=== PATIENT | female | born 1940 | race Caucasian/White ===

== ENCOUNTER 2019-06-30 10:32 | Inpatient (IN) ==
--- NOTE | 2019-06-30 10:38 | Emergency Department Note ---
Disposition Clinical Impression: Displaced fracture of right femoral neck Fall Qualifiers: Encounter type: initial encounter Qualified Code(s): W19.XXXA - Unspecified f all, initial encounter Disposition: Admitted As Inpatient Time of Disposition: 16:50 General Adult HPI - General Chief complaint: ED Fall Stated complaint: fall Time Seen by Provider: 06/30/19 10:34 - Related Data Home Medications Medication Instructions Recorded Confirmed ALPRAZolam [Xanax 0.5 MG Tablet] 0.5 mg PO BID PRN 07/22/16 12/10/18 Previous Rx's Medication Instructions Recorded Ascorbic Acid [C-500] 500 mg PO DAILY #30 tablet 12/12/18 Cyanocobalamin (B-12) [Vitamin B12] 1,000 mcg PO DAILY #30 tablet 12/12/18 Ferrous Sulfate 325 mg PO DAILY #30 tablet 12/12/18 Allergies Allergy/AdvReac Type Severity Reaction Status Date / Time alendronate sodium Allergy Hives Verified 05/10/17 11:39 [From Fosamax] colesevelam Allergy Hives Verified 05/10/17 11:39 niacin Allergy Hives Verified 05/10/17 11:39 Penicillins Allergy Swelling Verified 05/10/17 11:39 of Lip/Tongue/Throat pravastatin [From Pravachol] Allergy Cough Verified 05/10/17 11:39 Wdfshea-Dwx-Lgz Reductase Allergy Hives Verified 05/10/17 11:39 Inhibitor [Statins] Sulfa (Sulfonamide Allergy Hives Verified 05/10/17 11:39 Antibiotics) Past Medical History - Past Medical History Medical history: Reports: hyperlipidemia, hypertension, other Surgical history: Reports: breast surgery (Lumpectomy), hysterectomy (Partial), other (Oophorectomy) Psychiatric history: Reports: anxiety - Social History Smoking Status: Never smoker Smokeless Tobacco Status: No Alcohol use: Reports: none Drug use: Reports: none Course Vital Signs Temperature 97.8 F 06/30/19 10:33 Pulse Rate 53 06/30/19 10:33 Respiratory Rate 24 06/30/19 10:33 Blood Pressure 173/70 06/30/19 10:33 O2 Sat by Pulse Oximetry 97 06/30/19 10:33 Temperature 97.7 F 06/30/19 13:38 Pulse Rate 72 06/30/19 13:38 Respiratory Rate 16 06/30/19 13:38 Blood Pressure 143/69 06/30/19 13:38 O2 Sat by Pulse Oximetry 97 06/30/19 12:31 Oxygen Delivery Oxygen Delivery Nasal Cannula Medical Decision Making - Lab Data Result diagrams: 06/30/19 10:52 06/30/19 10:52 Lab Results 06/30/19 06/30/19 06/30/19 Range/Units 10:52 10:52 10:52 WBC 6.8 (4.3-11.1) K/mcL RBC 4.17 (3.82-4.97) M/mcL Hgb 12.9 (11.5-15.4) g/dL Hct 38.3 (35.3-44.9) % MCV 91.8 (83.0-100.0) fL MCH 30.9 (28.0-33.3) pg MCHC 33.7 (31.6-35.5) g/dL RDW 12.5 (11.5-14.5) % Plt Count 296 (140-400) K/mcL MPV 9.3 L (9.4-12.4) fL Immature Gran % 0.6 (0-4) % Seg Neutrophils % 71.3 % Lymphocytes % 19.3 % Monocytes % 6.0 % Eosinophils % 2.1 % Basophils % 0.7 % Neutrophils # 4.8 (1.6-8.9) K/mcL Lymphocytes # 1.3 (0.6-4.6) K/mcL Monocytes # 0.4 (0.0-1.3) K/mcL Eosinophils # 0.1 (0.0-0.6) K/mcL Basophils # 0.1 (0.0-0.2) K/mcL PT 11.6 (9.4-12.1) Seconds INR 1.0 Sodium 140 (136-145) mEq/L Potassium 3.4 L (3.5-5.1) mEq/L Chloride 106 (98-107) mEq/L Carbon Dioxide 25 (23-29) mEq/L BUN 15 (8-23) mg/dL Creatinine 0.70 (0.60-1.20) mg/dL Est GFR ( Amer) > 60 (> 60) Est GFR (Non-Af Amer) > 60 (> 60) BUN/Creatinine Ratio 21 (6-26) Glucose 120 H (70-105) mg/dL Calculated Osmolality 292 (280-300) Calcium 9.5 (8.6-10.3) mg/dL Blood Type Antibody Screen 06/30/19 Range/Units 10:52 WBC (4.3-11.1) K/mcL RBC (3.82-4.97) M/mcL Hgb (11.5-15.4) g/dL Hct (35.3-44.9) % MCV (83.0-100.0) fL MCH (28.0-33.3) pg MCHC (31.6-35.5) g/dL RDW (11.5-14.5) % Plt Count (140-400) K/mcL MPV (9.4-12.4) fL Immature Gran % (0-4) % Seg Neutrophils % % Lymphocytes % % Monocytes % % Eosinophils % % Basophils % % Neutrophils # (1.6-8.9) K/mcL Lymphocytes # (0.6-4.6) K/mcL Monocytes # (0.0-1.3) K/mcL Eosinophils # (0.0-0.6) K/mcL Basophils # (0.0-0.2) K/mcL PT (9.4-12.1) Seconds INR Sodium (136-145) mEq/L Potassium (3.5-5.1) mEq/L Chloride (98-107) mEq/L Carbon Dioxide (23-29) mEq/L BUN (8-23) mg/dL Creatinine (0.60-1.20) mg/dL Est GFR ( Amer) (> 60) Est GFR (Non-Af Amer) (> 60) BUN/Creatinine Ratio (6-26) Glucose (70-105) mg/dL Calculated Osmolality (280-300) Calcium (8.6-10.3) mg/dL Blood Type O POSITIVE Antibody Screen NEGATIVE Attestation Statement - Attestation Attestation: I reviewed the residents documentation and agree with the residents assessment and plan of care. I have personally had face to face time with the patient. (Brief History, Brief Exam, and MDM) I personally supervised and was present for the elias/critical portions of the following procedures completed by the resident: (add procedures performed here). [id number] time provided Patient presents by EMS. He sustained a mechanical fall. She complains of right hip pain. Shortening deformity identified on exam. I attest to supervising the resident physician's interpretation of the ECG
[2019-06-30] MEDS ORDERED: *HR* HYDROmorphone (PF) 1 MG/ML SYRINGE IVP ONE (10:43)
--- NOTE | 2019-06-30 10:44 | Emergency Department Note ---
Disposition Clinical Impression: Displaced fracture of right femoral neck Fall Qualifiers: Encounter type: initial encounter Qualified Code(s): W19.XXXA - Unspecified f all, initial encounter Disposition: Admitted As Inpatient Forms: ED Satisfaction Letter Time of Disposition: 11:49 Fall HPI - General Chief Complaint: ED Fall Stated Complaint: fall Time Seen by Provider: 06/30/19 10:34 Source: patient, EMS Mode of arrival: EMS Limitations: no limitations Nursing Notes Reviewed: Yes Vital Signs Reviewed: Yes - History of Present Illness HPI Narrative: 79F with PMHx of HTN and HLD presents to the ED after a mechanical fall without loss of consciousness. Patient was running away from a bee that was inside of her house when she twisted and fell, striking the right side of her body and the right side of her head. She said she saw stars but did not lose consciousness. She was only on the ground for a few minutes as her son was home as well and called EMS. She is afraid she may have broken her hip as her right hip is exquisitely tender. She denies head and neck pain, chest pain, abdominal pain a t this time. Her shoulder feels a little bit sore but is not tender to palpation. - Related Data Home Medications Medication Instructions Recorded Confirmed ALPRAZolam [Xanax 0.5 MG Tablet] 0.5 mg PO BID PRN 07/22/16 12/10/18 Previous Rx's Medication Instructions Recorded Ascorbic Acid [C-500] 500 mg PO DAILY #30 tablet 12/12/18 Cyanocobalamin (B-12) [Vitamin B12] 1,000 mcg PO DAILY #30 tablet 12/12/18 Ferrous Sulfate 325 mg PO DAILY #30 tablet 12/12/18 Allergies Allergy/AdvReac Type Severity Reaction Status Date / Time alendronate sodium Allergy Hives Verified 05/10/17 11:39 [From Fosamax] colesevelam Allergy Hives Verified 05/10/17 11:39 niacin Allergy Hives Verified 05/10/17 11:39 Penicillins Allergy Swelling Verified 05/10/17 11:39 of Lip/Tongue/Throat pravastatin [From Pravachol] Allergy Cough Verified 05/10/17 11:39 Gyfbfwz-Dwc-Uml Reductase Allergy Hives Verified 05/10/17 11:39 Inhibitor [Statins] Sulfa (Sulfonamide Allergy Hives Verified 05/10/17 11:39 Antibiotics) All systems ED: reviewed and negative except as stated. Review of Systems: As Per HPI Constitutional: Denies: fever, chills, weakness Eyes: Denies: vision change Cardiovascular: Denies: chest pain, palpitations, dyspnea on exertion Respiratory: Denies: cough, dyspnea, wheezes Gastrointestinal: Denies: abdominal pain, nausea, vomiting Musculoskeletal: Denies: back pain, neck pain Integumentary: Denies: rash Endocrine: Denies: fatigue Fall PMH - Past Medical History Medical history: Reports: hyperlipidemia, hypertension, other Surgical history: Reports: breast surgery (Lumpectomy), hysterectomy (Partial), other (Oophorectomy) Psychiatric history: Reports: anxiety - Social History Smoking Status: Never smoker Alcohol use: Reports: none Drug use: Reports: none Physical Exam - General Limitations: no limitations General appearance: alert, in no apparent distress - Head Head exam: normocephalic, other (bruising noted above right eyebrow without laceration) - Neck Neck exam: Present: normal inspection. Absent: tenderness, lymphadenopathy - Chest Chest inspection: Present: normal inspection. Absent: tenderness, rash - Respiratory Respiratory exam: Present: normal lung sounds bilaterally. Absent: wheezes - Cardiovascular Cardiovascular exam: Present: regular rate, normal rhythm - Abdominal Exam Abdominal exam: Present: soft, Non-Tender. Absent: distention, guarding, rebound, rigidity - Extremities Exam Extremities exam: Present: tenderness (right hip tender to palpation and log roll). Absent: pedal edema - Neurological Exam Neurological exam: Present: alert, oriented X3 - Psychiatric Psychiatric exam: Present: normal affect, normal mood - Skin Skin exam: Present: warm, dry, intact Course Vital Signs Temperature 97.8 F 06/30/19 10:33 Pulse Rate 53 06/30/19 10:33 Respiratory Rate 24 06/30/19 10:33 Blood Pressure 173/70 06/30/19 10:33 O2 Sat by Pulse Oximetry 97 06/30/19 10:33 Temperature 97.8 F 06/30/19 10:33 Pulse Rate 53 06/30/19 10:33 Respiratory Rate 24 06/30/19 10:33 Blood Pressure 173/70 06/30/19 10:33 O2 Sat by Pulse Oximetry 97 06/30/19 10:33 Oxygen Delivery Oxygen Delivery Room Air Fall - MDM Narrative Medical decision making narrative: Patient resents after a fall without loss of consciousness and is suspicious for a broken hip. We will obtain preop labs and EKG as well as imaging of her head , C-spine, chest x-ray and hip films. Pt will be given 0.5mg of dilaudid for pain management. 1129 - hip XR shows a supcapital right femoral neck fracture with superior displacement. All other labs and CXR do not demonstrate acute abnormalities. Awaiting imaging of the head and neck at this time. Ortho has been paged. Pt began vomiting after administration of Dilaudid therefore we will administer Zofran for nausea. 1140 - Spoke with Dr. Fay who states he will see the patient in consultation later today. CT imaging of the head and cervical spine do not demonstrate any acute fractures. Hospitalist has been paged for admission. 1148 - Pt has been accepted by Dr. Weems - Medical Records Medical records reviewed: Yes I reviewed the patient's medical records. - Lab Data Lab results reviewed: Yes I reviewed the patient's lab results. Result diagrams: 06/30/19 10:52 06/30/19 10:52 Lab Results 06/30/19 06/30/19 06/30/19 Range/Units 10:52 10:52 10:52 WBC 6.8 (4.3-11.1) K/mcL RBC 4.17 (3.82-4.97) M/mcL Hgb 12.9 (11.5-15.4) g/dL Hct 38.3 (35.3-44.9) % MCV 91.8 (83.0-100.0) fL MCH 30.9 (28.0-33.3) pg MCHC 33.7 (31.6-35.5) g/dL RDW 12.5 (11.5-14.5) % Plt Count 296 (140-400) K/mcL MPV 9.3 L (9.4-12.4) fL Immature Gran % 0.6 (0-4) % Seg Neutrophils % 71.3 % Lymphocytes % 19.3 % Monocytes % 6.0 % Eosinophils % 2.1 % Basophils % 0.7 % Neutrophils # 4.8 (1.6-8.9) K/mcL Lymphocytes # 1.3 (0.6-4.6) K/mcL Monocytes # 0.4 (0.0-1.3) K/mcL Eosinophils # 0.1 (0.0-0.6) K/mcL Basophils # 0.1 (0.0-0.2) K/mcL PT 11.6 (9.4-12.1) Seconds INR 1.0 Sodium 140 (136-145) mEq/L Potassium 3.4 L (3.5-5.1) mEq/L Chloride 106 (98-107) mEq/L Carbon Dioxide 25 (23-29) mEq/L BUN 15 (8-23) mg/dL Creatinine 0.70 (0.60-1.20) mg/dL Est GFR ( Amer) > 60 (> 60) Est GFR (Non-Af Amer) > 60 (> 60) BUN/Creatinine Ratio 21 (6-26) Glucose 120 H (70-105) mg/dL Calculated Osmolality 292 (280-300) Calcium 9.5 (8.6-10.3) mg/dL Blood Type Antibody Screen 06/30/19 Range/Units 10:52 WBC (4.3-11.1) K/mcL RBC (3.82-4.97) M/mcL Hgb (11.5-15.4) g/dL Hct (35.3-44.9) % MCV (83.0-100.0) fL MCH (28.0-33.3) pg MCHC (31.6-35.5) g/dL RDW (11.5-14.5) % Plt Count (140-400) K/mcL MPV (9.4-12.4) fL Immature Gran % (0-4) % Seg Neutrophils % % Lymphocytes % % Monocytes % % Eosinophils % % Basophils % % Neutrophils # (1.6-8.9) K/mcL Lymphocytes # (0.6-4.6) K/mcL Monocytes # (0.0-1.3) K/mcL Eosinophils # (0.0-0.6) K/mcL Basophils # (0.0-0.2) K/mcL PT (9.4-12.1) Seconds INR Sodium (136-145) mEq/L Potassium (3.5-5.1) mEq/L Chloride (98-107) mEq/L Carbon Dioxide (23-29) mEq/L BUN (8-23) mg/dL Creatinine (0.60-1.20) mg/dL Est GFR ( Amer) (> 60) Est GFR (Non-Af Amer) (> 60) BUN/Creatinine Ratio (6-26) Glucose (70-105) mg/dL Calculated Osmolality (280-300) Calcium (8.6-10.3) mg/dL Blood Type O POSITIVE Antibody Screen NEGATIVE - Radiology Data Radiology results reviewed: Yes I reviewed the patient's radiology results. - EKG Data EKG attestation: Yes I reviewed and interpreted this EKG. EKG results narrative: EKG obtained at 1050 on 06/30/2019 Heart rate 52 bpm, MO interval 169, QRS duration 77, QTC 450, QTC 419 Sinus rhythm without any ST segment elevations or depressions. No obvious T- wave abnormalities. No significant changes when compared to previous EKG dated 12/10/2018.
[2019-06-30 11:04] LABS: Basophils # 0.1 K/mcL (0.0-0.2); Basophils % 0.7 %; Eosinophils # 0.1 K/mcL (0.0-0.6); Eosinophils % 2.1 %; Hematocrit 38.3 % (35.3-44.9); Hemoglobin 12.9 g/dL (11.5-15.4); Immature Granulocytes % 0.6 % (0-4); Lymphocytes # 1.3 K/mcL (0.6-4.6); Lymphocytes % 19.3 %; Mean Corpuscular HGB Conc 33.7 g/dL (31.6-35.5); Mean Corpuscular Hemoglobin 30.9 pg (28.0-33.3); Mean Corpuscular Volume 91.8 fL (83.0-100.0); Mean Platelet Volume 9.3 fL (9.4-12.4); Monocytes # 0.4 K/mcL (0.0-1.3); Neutrophils # 4.8 K/mcL (1.6-8.9); Platelet Count 296 K/mcL (140-400); Red Blood Count 4.17 M/mcL (3.82-4.97); Red Cell Distribution Width 12.5 % (11.5-14.5); Segmented Neutrophils % 71.3 %; White Blood Count 6.8 K/mcL (4.3-11.1)
[2019-06-30 11:11] LABS: Prothrombin Time 11.6 Seconds (9.4-12.1)
[2019-06-30 11:22] LABS: BUN/Creatinine Ratio 21 (6-26); Blood Urea Nitrogen 15 mg/dL (8-23); Calcium 9.5 mg/dL (8.6-10.3); Carbon Dioxide 25 mEq/L (23-29); Chloride 106 mEq/L (98-107); Glucose 120 mg/dL (70-105); Osmolality,Calculated 292 (280-300); Potassium 3.4 mEq/L (3.5-5.1); Sodium 140 mEq/L (136-145); eGFR For African Americans > 60 (> 60); eGFR For Non-African Americans > 60 (> 60)
[2019-06-30] MEDS ORDERED: Ondansetron 4 MG/2 ML VIAL IVP ONE (11:28)
[2019-06-30] MEDS ORDERED: Tdap (Boostrix) Vaccine 0.5 ML SYRINGE IM ONE (11:43)
[2019-06-30] MEDS ORDERED: MOM Conc 10 ML UD.LIQ PO PRN (13:21)
[2019-06-30] MEDS ORDERED: Acetaminophen 325 MG TABLET PO PRN (13:21)
[2019-06-30] MEDS ORDERED: Mag Hydrox/Al Hydrox/Simeth 30 ML UDC PO PRN (13:21)
[2019-06-30] MEDS ORDERED: Ondansetron 4 MG/2 ML VIAL IVP PRN (13:21)
[2019-06-30] MEDS ORDERED: *HR* Promethazine 25 MG/ML VIAL IVP PRN (13:21)
[2019-06-30] MEDS ORDERED: Naloxone 0.4 MG/ML INJ IVP PRN (13:21)
[2019-06-30] MEDS ORDERED: Morphine Sulfate 2 MG/ML SYRINGE IVP PRN (13:26)
--- NOTE | 2019-06-30 13:29 | Internal Med History&Physical ---
Date of Encounter: 06/30/19 Time of Encounter: 13:29 Internal Medicine - H&P: HPI Admitted From: Home Plans for Post Hospital Care: Home History of present illness: Ms. Pemberton is an 79F with PMHx of HTN and HLD presents to the ED after a mechanical fall without loss of consciousness. Patient was running away from a bee that was inside of her house when she twisted and fell, striking the right side of her body and the right side of her head. She said she saw stars but did not lose consciousness. She was only on the ground for a few minutes as her son was home as well and called EMS. She is afraid she may have broken her hip as her right hip is exquisitely tender. She denies head and neck pain, chest pain, abdominal pain at this time. Her shoulder feels a little bit sore but is not tender to palpation. X-ray of right hip showed subcapital right femoral neck fracture with superior displacement. Orthopedics was consulted. Patient was admitted for further evaluation and management. She will be full code. Past Med Surg Social Fam HX - Past Medical History Medical history: hyperlipidemia, hypertension, other Additional medical history: DIVERTICULOSIS Psychiatric history: anxiety - Past Surgical History Surgical History: breast surgery (Lumpectomy), hysterectomy (Partial), other (Oophorectomy) Additional surgical history: benign breast tumor, OVARY REMOVED - Social History Smoking Status: Never smoker Smokeless Tobacco Status: No Alcohol use: none Drug use: none - Family History Mother Hx Family Respiratory Disorders: Yes Hx Family Cancer: Yes Father Hx Family Cardiac Disorders: Yes Internal Medicine - H&P: Meds ALPRAZolam [Xanax 0.5 MG Tablet] 0.5 mg PO BID PRN 07/22/16 [History] Ascorbic Acid [C-500] 500 mg PO DAILY #30 tablet 12/12/18 [Rx] Cyanocobalamin (B-12) [Vitamin B12] 1,000 mcg PO DAILY #30 tablet 12/12/18 [Rx] Ferrous Sulfate 325 mg PO DAILY #30 tablet 12/12/18 [Rx] Allergy/AdvReac Type Severity Reaction Status Date / Time alendronate sodium Allergy Hives Verified 05/10/17 11:39 [From Fosamax] colesevelam Allergy Hives Verified 05/10/17 11:39 niacin Allergy Hives Verified 05/10/17 11:39 Penicillins Allergy Swelling Verified 05/10/17 11:39 of Lip/Tongue/Throat pravastatin [From Pravachol] Allergy Cough Verified 05/10/17 11:39 Cblxovi-Ykb-Eir Reductase Allergy Hives Verified 05/10/17 11:39 Inhibitor [Statins] Sulfa (Sulfonamide Allergy Hives Verified 05/10/17 11:39 Antibiotics) All Systems PM: A 10-system review of systems was performed and is negative for pertinent findings except as documented above in the HPI. Review of systems: REVIEW OF SYSTEMS: CONSTITUTIONAL: No weight loss, fever, chills, weakness or fatigue. HEENT: Eyes: No visual loss, blurred vision, double vision or yellow sclerae. Ears, Nose, Throat: No hearing loss, sneezing, congestion, runny nose or sore throat. SKIN: No rash or itching. CARDIOVASCULAR: No chest pain, chest pressure or chest discomfort. No palpitations or edema. RESPIRATORY: No shortness of breath, cough or sputum. GASTROINTESTINAL: No anorexia, nausea, vomiting or diarrhea. No abdominal pain or blood. GENITOURINARY: No dysuria, urgency, or frequency. NEUROLOGICAL: No headache, dizziness, syncope, paralysis, ataxia, numbness or tingling in the extremities. No change in bowel or bladder control. MUSCULOSKELETAL: No muscle, back pain, joint pain or stiffness. HEMATOLOGIC: No anemia, bleeding or bruising. LYMPHATICS: No enlarged nodes. No history of splenectomy. PSYCHIATRIC: No history of depression or anxiety. ENDOCRINOLOGIC: No reports of sweating, cold or heat intolerance. No polyuria or polydipsia. - Constitutional Vitals: Temp Pulse Resp BP Pulse Ox 97.8 F 49 17 150/71 97 06/30/19 10:33 06/30/19 12:31 06/30/19 12:31 06/30/19 12:31 06/30/19 12:31 General appearance: Present: A&O X 3 Exam: PHYSICAL EXAMINATION: GENERAL APPEARANCE: The patient is alert, oriented and in no acute distress. HEENT: Head is normocephalic. The sinuses are nontender. Pupils are equal and reactive. The nares are patent. Oropharynx clear without lesions. NECK: Supple without lymphadenopathy. HEART: Regular rate and rhythm. LUNGS: No crackles or wheezes are heard. ABDOMEN: Soft, nontender, nondistended with good bowel sounds heard. Inguinal area is normal. EXTREMITIES: right leg is externally rotated and shorter than the left side. NEUROLOGICAL: Gross nonfocal. SKIN: Warm and dry without any rash. Internal Med - H&P Results - Labs CBC & Chem 7: 06/30/19 10:52 06/30/19 10:52 Labs: Short CBC 06/30/19 Range/Units 10:52 WBC 6.8 (4.3-11.1) K/mcL Hgb 12.9 (11.5-15.4) g/dL Hct 38.3 (35.3-44.9) % Plt Count 296 (140-400) K/mcL Neutrophils # 4.8 (1.6-8.9) K/mcL BMP 06/30/19 10:52 Sodium 140 Potassium 3.4 L Chloride 106 Carbon Dioxide 25 BUN 15 Creatinine 0.70 Glucose 120 H Calcium 9.5 - Impressions ITS Impressions Hip X-Ray 06/30/19 10:36 IMPRESSION: Subcapital right femoral neck fracture with superior displacement D/ / Bart Katz MD / Bart Katz MD Interpreting Provider: Bart Katz MD Cervical Spine CT 06/30/19 10:42 IMPRESSION: No acute abnormality of the cervical spine. D/ / Sree López MD / Sree López MD Interpreting Provider: Sree López MD Chest X-Ray 06/30/19 10:42 IMPRESSION: No acute process. D/ / Bart Katz MD / Bart Katz MD Interpreting Provider: Bart Katz MD Head CT 06/30/19 10:42 IMPRESSION: No acute intracranial abnormality. D/ / Bennie Bruno MD / Bennie Bruno MD Interpreting Provider: Bennie Bruno MD - Assessment and Plan (1) Fall Current Visit: Yes Status: Acute Assessment and plan: Seems a farm mechanic fall. No LOC. No syncope, palpitation, or lightheadedness. Qualifiers: Encounter type: initial encounter Qualified Code(s): W19.XXXA - Unspecified fall, initial encounter (2) Displaced fracture of right femoral neck Current Visit: Yes Status: Acute Assessment and plan: X-ray of right hip showed subcapsular femoral neck fracture. Orthopedics consulted, appreciate help. No history of osteoporosis, serum calcium level normal. Will check vitamin D level. Pain control, DVT prophylaxis. (3) Hypertension Current Visit: No Status: Chronic Assessment and plan: Not on BP meds at home, BP high currently likely due to acute stress. Will monitor. Qualifiers: Hypertension type: essential hypertension Qualified Code(s): I10 - Essential (primary) hypertension (4) Hyperlipidemia Current Visit: No Status: Chronic Assessment and plan: Not on lipid lower agent at home. will repeat lipid panel. Qualifiers: Hyperlipidemia type: unspecified Qualified Code(s): E78.5 - Hyperlipidemia, unspecified (5) DVT prophylaxis Current Visit: Yes Status: Acute Assessment and plan: Heparin sq. - Time Spent With Patient Total time spent is greater than 50% in coordination of care (as documented) at patient's floor/unit and/or counseling patient: Greater than 35 minutes
[2019-06-30] MEDS: *HR* Heparin 5,000 UNIT/ML VIAL SQ SCH ×2 (14:25→22:13)
[2019-06-30] MEDS: traMADol 50 MG TABLET PO PRN ×2 (15:26→22:13)
--- NOTE | 2019-06-30 20:43 | Orthopedic Consult Note ---
Date of Encounter: 06/30/19 Time of Encounter: 20:36 History of Present Illness Chief complaint: Right hip pain HPI: Ms. Pemberton is a 79 year old female who sustained a mechanical fall in her home when she tripped as she was trying to move Bactrim abnormal be in her home. She fell and injured her right hip. She had immediate pain and was able to ambulate. She was brought emergently x-rays taken revealed evidence of a right hip fracture. She is admitted now for definitive orthopedic management. Patient denies any other injuries. Patient denies dizziness vertigo syncope etc. Patient has a history of spinal stenosis with some progressive numbness in the foot. Denies any recurrent back pain. I reviewed the patient's completed history and physical examination as well as completed medical record. Pertinent orthopedic examination is a very pleasant 79-year-old woman in mild distress while lying in the hospital bed. Right lower extremity is shortened approximately 2-1/2-3 cm. Minimal rotational deformity. Distal neurosensory exam reveals some diminished sensation distally. X-rays reveals a displaced right femoral neck fracture with marked shortening of the right lower extremity. There is what appears to be a calcified fibroid in the uterus with a pessary also identified on x-ray. Impression: Displaced right femoral neck fracture Recommendation: I feel the optimal treatment would be to proceed with a cemented hemiarthroplasty of the hip. I discussed the treatment options including conservative measures with nonoperative management or surgical treatment. I recommend the cemented hemiarthroplasty as this would allow immediate full weightbearing ambulation and would eliminate any need for fracture healing with the risks of avascular necrosis should an attempt at reduction and percutaneous pinning be entertained. We discussed the surgical procedure as well as the possible risks including but not limited to bleeding, infection, blood clots, stiffness, additional nerve injury, rotational or leg length deformity or even hip dislocation. The patient and family understand and agree and feel that this is the best treatment option. Patient has signed informed consent for the surgical procedure. Have tentatively scheduled her for surgery tomorrow when operating time is available. Thank you very much for allowing me to seen care for Mrs. Pemberton. Sincerely, Noel Fay,DO Past Med Surg Social Fam HX - Past Medical History Medical history: hyperlipidemia, hypertension, other Additional medical history: DIVERTICULOSIS Psychiatric history: anxiety - Past Surgical History Surgical History: breast surgery (Lumpectomy), hysterectomy (Partial), other (Oophorectomy) Additional surgical history: benign breast tumor, OVARY REMOVED - Social History Smoking Status: Never smoker Smokeless Tobacco Status: No Alcohol use: none Drug use: none - Family History Mother Hx Family Respiratory Disorders: Yes Hx Family Cancer: Yes Father Hx Family Cardiac Disorders: Yes Medications and Allergies ALPRAZolam [Xanax 0.5 MG Tablet] 0.5 mg PO BID PRN 07/22/16 [History] Ascorbic Acid [C-500] 500 mg PO DAILY #30 tablet 12/12/18 [Rx] Cyanocobalamin (B-12) [Vitamin B12] 1,000 mcg PO DAILY #30 tablet 12/12/18 [Rx] Ferrous Sulfate 325 mg PO DAILY #30 tablet 12/12/18 [Rx] Allergy/AdvReac Type Severity Reaction Status Date / Time alendronate sodium Allergy Hives Verified 05/10/17 11:39 [From Fosamax] colesevelam Allergy Hives Verified 05/10/17 11:39 niacin Allergy Hives Verified 05/10/17 11:39 Penicillins Allergy Swelling Verified 05/10/17 11:39 of Lip/Tongue/Throat pravastatin [From Pravachol] Allergy Cough Verified 05/10/17 11:39 Gdzcjio-Wkc-Pru Reductase Allergy Hives Verified 05/10/17 11:39 Inhibitor [Statins] Sulfa (Sulfonamide Allergy Hives Verified 05/10/17 11:39 Antibiotics) All Systems Reviewed: The remainder of the systems were reviewed and are negative Physical Exam - Constitutional Vitals: Temp Pulse Resp BP Pulse Ox 98.5 F 72 17 104/53 99 06/30/19 19:39 06/30/19 19:39 06/30/19 19:39 06/30/19 19:39 06/30/19 19:39 Results - Labs Result Diagrams: 06/30/19 10:52 06/30/19 10:52 Labs: Abnormal lab results MPV 9.3 fL (9.4-12.4) L 06/30/19 10:52 Potassium 3.4 mEq/L (3.5-5.1) L 06/30/19 10:52 Glucose 120 mg/dL (70-105) H 06/30/19 10:52 H & H 08/26/19 Range/Units 10:52 Hgb 12.9 (11.5-15.4) g/dL Hct 38.3 (35.3-44.9) % All other labs normal. - Diagnostic results Hip x-ray: image reviewed Consult Discharge Plan - Plan Referrals: Olya Lujan DO [Primary Care Provider] -
--- NOTE | 2019-07-01 00:29 | Electrocardiograph Report ---
[place] Test Date: 2019-06-30 Pat Name: Margaret Pemberton Department: EXAM1 Room: [facility] Gender: F Change Over: : 1940 Requested By: Chloe Shah Order Number: [id number] Reading MD: Olya Lujan Measurements Intervals [place] Rate: 52 P: 74 WA: 169 QRS: 46 QRSD: 77 T: 54 QT: 450 QTc: 419 Interpretive Statements Sinus rhythm Baseline wander in lead(s) V3 Electronically Signed On 07-01-2019 0:27:40 EDT by Olya Lujan
[2019-07-01 05:42] LABS: Hematocrit 32.7 % (35.3-44.9); Mean Corpuscular Hemoglobin 30.9 pg (28.0-33.3); Mean Corpuscular Volume 93.7 fL (83.0-100.0); Mean Platelet Volume 9.3 fL (9.4-12.4); Platelet Count 254 K/mcL (140-400); Red Blood Count 3.49 M/mcL (3.82-4.97); Red Cell Distribution Width 12.8 % (11.5-14.5)
[2019-07-01 05:43] LABS: Hemoglobin 10.8 g/dL (11.5-15.4); White Blood Count 11.6 K/mcL (4.3-11.1)
[2019-07-01] MEDS: *HR* Heparin 5,000 UNIT/ML VIAL SQ SCH ×2 (05:44→15:19)
[2019-07-01 06:04] LABS: Chol/HDL Ratio 3.3 (0-4.9)
[2019-07-01 06:06] LABS: Alanine Aminotransferase 14 Units/L (7-52); Albumin 3.6 g/dL (3.5-5.7); Albumin/Globulin Ratio 1.6 (1.1-2.2); Alkaline Phosphatase 47 Units/L (34-104); Aspartate Amino Transferase 12 Units/L (13-39); BUN/Creatinine Ratio 26 (6-26); Bilirubin,Total 0.5 mg/dL (0.3-1.0); Blood Urea Nitrogen 23 mg/dL (8-23); Calcium 9.1 mg/dL (8.6-10.3); Carbon Dioxide 26 mEq/L (23-29); Chloride 102 mEq/L (98-107); Globulin 2.2 g/dL (2.4-3.5); Glucose 130 mg/dL (70-105); Osmolality,Calculated 291 (280-300); Phosphorous 3.6 mg/dL (2.7-4.5); Potassium 4.4 mEq/L (3.5-5.1); Sodium 138 mEq/L (136-145); Total Protein 5.8 g/dL (6.4-8.9); eGFR For African Americans > 60 (> 60); eGFR For Non-African Americans > 60 (> 60)
[2019-07-01] MEDS: traMADol 50 MG TABLET PO PRN (10:55)
[2019-07-01] MEDS ORDERED: Clindamycin 900 MG/50 ML 900 MG/50 ML IV.SOLN IVPB ONE (12:00)
--- NOTE | 2019-07-01 14:01 | Anesthesia Evaluation PreOp ---
Date of Encounter: 07/01/19 Time of Encounter: 13:58 - Past History Planned Operation: RIGHT HIP HEMIARTHROPLASTY Cardiac History: HTN, Hyperlipidemia Pulmonary History: Denies Any Significant HX [employer] History: Other (SPINAL STENOSIS, PERIPHERAL NEUROPATHY) Other Medical History: Denies Any Significant HX, Other (ANEMIA) Anesthesia History: No Prior Anesthetic Complications, Past Anesthesia Alcohol Use: none Drug use: none Medications and Allergies ALPRAZolam [Xanax 0.5 MG Tablet] 0.5 mg PO HS 07/22/16 [History] Ascorbic Acid [C-500] 500 mg PO DAILY #30 tablet 12/12/18 [Rx] Cyanocobalamin (B-12) [Vitamin B12] 1,000 mcg PO DAILY #30 tablet 12/12/18 [Rx] Amlodipine Besylate 2.5 mg PO DAILY 07/01/19 [History] Aspirin [Adult Aspirin] 81 mg PO DAILY 07/01/19 [History] Lactase [Lactaid] 3,000 unit PO PRN PRN 07/01/19 [History] Lisinopril-HCTZ 10-12.5 [Prinzide 10-12.5] 1 tab PO DAILY 07/01/19 [History] Allergy/AdvReac Type Severity Reaction Status Date / Time alendronate sodium Allergy Hives Verified 05/10/17 11:39 [From Fosamax] colesevelam Allergy Hives Verified 05/10/17 11:39 niacin Allergy Hives Verified 05/10/17 11:39 Penicillins Allergy Swelling Verified 05/10/17 11:39 of Lip/Tongue/Throat pravastatin [From Pravachol] Allergy Cough Verified 05/10/17 11:39 [id number] Reductase Allergy Hives Verified 05/10/17 11:39 Inhibitor [Statins] Sulfa (Sulfonamide Allergy Hives Verified 05/10/17 11:39 Antibiotics) - Meds/Allergy Pre-op Review Medications Reviewed: Yes Allergies Reviewed: Yes Beta Blockers on Current Med List: No Anesthesia Results - Labs 07/01/19 05:26 07/01/19 05:26 Anesthesia Exam Vital Signs/O2 Sat/Glucose, Most Recent Temp Pulse Resp BP Pulse Ox 99.2 F 60 16 103/56 93 07/01/19 06:57 07/01/19 06:57 07/01/19 06:57 07/01/19 06:57 07/01/19 03:27 Weight: 60 KG - BMI 23 NPO (# of Hours): 8 - HEENT Mallampati: I Teeth: Normal Denture Type: Upper: Partial - Cardiac Rhythm: Regular - Pulmonary Breath Sounds: bilateral Clear Anesthesia Assess/Plan ASA Score: 2 Anesthetic Plan: Spinal Monitoring Plan: Standard Monitors Recovery Plan: PACU
[2019-07-01] MEDS ORDERED: LACTASE 3000 UNIT PO PRN (15:39)
--- NOTE | 2019-07-01 16:28 | Internal Med Progress Note ---
Hospitalist Progress Note - Encounter Date of Encounter: 07/01/19 Time of Encounter: 07:37 - Subjective Interval History: No acute events overnight. Patient denies chest pain shortness of breath and palpitations. She admits some moderate right hip pain. - Exam Vitals: Temp Pulse Resp BP Pulse Ox 37.3 C 60 16 103/56 93 07/01/19 06:57 07/01/19 06:57 07/01/19 06:57 07/01/19 06:57 07/01/19 03:27 Exam: PHYSICAL EXAMINATION: GENERAL APPEARANCE: The patient is alert, oriented and in no acute distress. HEENT: Head is normocephalic. The sinuses are nontender. Pupils are equal and reactive. The nares are patent. Oropharynx clear without lesions. NECK: Supple without lymphadenopathy. HEART: Regular rate and rhythm. LUNGS: No crackles or wheezes are heard. ABDOMEN: Soft, nontender, nondistended with good bowel sounds heard. Inguinal area is normal. EXTREMITIES: right leg is externally rotated and shorter than the left side. NEUROLOGICAL: Gross nonfocal. SKIN: Warm and dry without any rash. - Assessment and Plan (1) Displaced fracture of right femoral neck Current Visit: Yes Status: Acute Assessment and Plan: X-ray of right hip showed a right femoral neck fracture. Orthopedic surgery has seen patient Plan is to schedule patient for right hip surgery today when time becomes available. (2) Hypertension Current Visit: No Status: Chronic Assessment and Plan: Not on BP meds at home, BP high currently likely due to acute stress. Will monitor. (3) Fall Current Visit: Yes Status: Acute Assessment and Plan: Mechanical fall. No LOC. No syncope, palpitation, or lightheadedness. (4) DVT prophylaxis Current Visit: Yes Status: Acute Assessment and Plan: Heparin sq - Time Spent with Patient Total time spent is greater than 50% in coordination of care (as documented) at patient's floor/unit and/or counseling patient: Internal Medicine: Result - Labs CBC & Chem 7: 07/01/19 05:26 07/01/19 05:26 Labs: Short CBC 07/01/19 Range/Units 05:26 WBC 11.6 H D (4.3-11.1) K/mcL Hgb 10.8 L D (11.5-15.4) g/dL Hct 32.7 L (35.3-44.9) % Plt Count 254 (140-400) K/mcL BMP 07/01/19 05:26 Sodium 138 Potassium 4.4 D Chloride 102 Carbon Dioxide 26 BUN 23 Creatinine 0.88 Glucose 130 H Calcium 9.1 Liver Function 07/01/19 Range/Units 05:26 Total Bilirubin 0.5 (0.3-1.0) mg/dL AST 12 L (13-39) Units/L ALT 14 (7-52) Units/L Alkaline Phosphatase 47 (34-104) Units/L Albumin 3.6 (3.5-5.7) g/dL - ABG Interpretation ABG results: PT/INR, D-dimer PT 11.6 Seconds (9.4-12.1) 06/30/19 10:52 Consult Discharge Plan - Plan Referrals: Olya Lujan DO [Primary Care Provider] - (2) Hypertension Qualifiers: Hypertension type: essential hypertension Qualified Code(s): I10 - Essential (primary) hypertension (3) Fall Qualifiers: Encounter type: initial encounter Qualified Code(s): W19.XXXA - Unspecified fall, initial encounter
[2019-07-01] MEDS ORDERED: Acetaminophen IV 1,000 MG/100 ML INFUS..BTL ONE (20:42)
[2019-07-01] MEDS ORDERED: *HR* FentaNYL (PF) 100 MCG/2 ML VIAL ONE (20:53)
[2019-07-01] MEDS ORDERED: Dexamethasone 4 MG/ML VIAL ONE (20:54)
[2019-07-01] MEDS ORDERED: Lidocaine -MPF 2% 2 ML VIAL ONE (20:54)
[2019-07-01] MEDS ORDERED: Ondansetron 4 MG/2 ML VIAL ONE (20:54)
[2019-07-01] MEDS ORDERED: *HR* Rocuronium Bromide 50 MG/5 ML VIAL ONE (20:54)
[2019-07-01] MEDS ORDERED: *HR* Propofol 200 MG/20 ML VIAL IVP ONE (20:54)
[2019-07-01] MEDS ORDERED: ALPRAZolam 0.5 MG TABLET PO SCH (21:00)
[2019-07-01] MEDS ORDERED: Lidocaine -MPF 4% 5 ML AMPUL ONE (21:22)
[2019-07-01] MEDS ORDERED: Clindamycin 600 MG/50 ML 600 MG/50 ML IV.SOLN IVPB ONE (21:46)
[2019-07-01] MEDS ORDERED: EPHEDrine 50 MG/ML VIAL ONE (21:49)
[2019-07-01] MEDS ORDERED: *HR* PHENYLEPHRINE 1,000 MCG/10 ML SYRINGE IVP ONE (21:52)
[2019-07-01] MEDS ORDERED: Neostigmine Methylsulfate 3 MG/3 ML SYRINGE ONE (23:06)
[2019-07-02] MEDS ORDERED: Ondansetron 4 MG/2 ML VIAL IVP ONE (00:01)
--- NOTE | 2019-07-02 00:09 | Operative Note ---
Date of procedure: 07/01/19 Pre-op diagnosis: Displaced right femoral neck fracture Post-op diagnosis: same Procedure: Hemiarthroplasty right hip Implants: Biomet echo size 7 lateralized femoral stem with a standard neck adapter and a 46 mm endoprosthesis Complications: None Anesthesia: FIDELA Surgeon: Noel Fay Was there an evaluation assistant present: No Estimated blood loss (cc): 150 Specimen: None Condition: stable Disposition: PACU Procedure in Detail: Gross findings: Preoperative x-rays revealed a displaced right femoral neck fracture in this 79-year-old woman. Intraoperative findings were as anticipated with a comminuted fracture of the femoral neck and complete displacement. Minimal arthritic changes were noted. A cemented unipolar hemiarthroplasty was performed without complicating features. After placement of the prosthesis a stable hip was identified without tendency toward subluxation or dislocation. Procedure: Patient is taken the operating room and while in the hospital bed was administered a general anesthesia. Once adequate level of anesthesia have been obtained the patient was transferred to the operating table in place a lateral recumbent position with the right side up and stabilized with a lateral hip stabilizing system. All pressure points were well-padded. Right hip was now prepped and draped in normal standard fashion for surgery. Right lateral hip incision was created. Dissection was carried through subtendinous tissues down the level of fascia waleska which is clearness but length the incision. Charnley retractor was placed maintaining exposure. Anterior abductors then taken down off the trochanter in a subperiosteal manner utilizing electrocautery knife and tagged with #2 FiberWire suture for traction of later repair. Capsule was likewise taken down the fracture hematoma was encountered and evacuated. Superior capsulotomy was made up the level of the acetabulum. Femoral neck osteotomy was made. Head was now removed from the acetabulum and sized to about a 46. The acetabulum was now cleaned with pulsatile lavage and mechanical debridement removing all clot and debris. The acetabulum was now formally sized to a 46. Attention was now turned to the femur. Box osteotome was utilized to open up the medial trochanter. T-handled reamers passed on the femoral canal. Canal was then sequentially rasped up to and including the size 9 which gave excellent fit. Trialing was performed and with a lateralized neck and a standard adapter and the 46 mm unipolar prosthesis gave excellent function. At this time all trial components removed from the femur. Cement restrictor was placed approximately 125 mm. Femoral canal was irrigated with pulsatile lavage and then dried with a combination of suction and sponges. At this time cement was mixed and appropriate time the cement was instilled into the femoral canal which was filled in a retrograde manner and pressurized proximally. The femoral stem was then placed into the cement and impacted until it sat at the level of the osteotomy. Excess cement was trimmed away. Compression was maintained upon the implants until cement had fully hardened. At this time the Roland taper on the femoral stem was cleaned and dried and then the adapter and head were placed and impacted with 3 sharp blows of the mallet. Final washout of the hip was performed. This is followed by final reduction of the hip with excellent stability identified. The capsulotomy was closed with #2 FiberWire. Abductors were repaired back to the trochanter with previously placed #2 FiberWire and reinforced with #2 strata fix. Fascia waleska was closed with multiple [id number] stitch of #2 FiberWire followed by running #2 strata fix. Deep subtendinous tissue was closed with running #1 Vicryl followed by immediate subtendinous tissue approximation with multiple inverted interrupted 2-0 undyed Vicryl followed by skin approximation with a running septic stitch of 20 strata fix followed by skin glue and operative foam. Patient was now placed into an abduction pillow on the operating table. Patient was now transferred to the hospital bed and then transported to the postanesthesia care unit in stable and satisfactory cond ition. All sponge needle and isthmic counts are correct. No specimens were request for pathology.
--- NOTE | 2019-07-02 00:22 | Anesthesia Evaluation Post Op ---
Date of Encounter: 07/02/19 Time of Encounter: 00:30 - Vital Signs Vital Signs: Vital Signs/O2 Sat/Glucose, Most Current Temp Pulse Resp BP Pulse Ox 07/02/19 00:10 82 10 120/54 93 07/02/19 00:00 71 10 111/52 97 07/01/19 23:50 98.6 F 77 9 116/53 96 - Lungs Lungs: Clear Ascult./Percussion - Airway Airway: Non-obstructed - Cardiovascular Regular Rate - Mental Status Mental Status: Alert & Oriented, Answers Appropriately - Pain Pain Scale: 1 - Nausea Vomiting Nausea Vomiting: Not Present - Hydration Hydration: Ice chips - Discharge PostOp Status: Transfer Patient to floor
[2019-07-02] MEDS ORDERED: Naloxone 0.4 MG/ML INJ IVP PRN (00:48)
[2019-07-02] MEDS ORDERED: *HR* Promethazine 25 MG/ML VIAL IVP PRN (00:48)
[2019-07-02] MEDS ORDERED: Mag Hydrox/Al Hydrox/Simeth 30 ML UDC PO PRN (00:48)
[2019-07-02] MEDS ORDERED: MOM Conc 10 ML UD.LIQ PO PRN (00:48)
[2019-07-02] MEDS ORDERED: Ondansetron 4 MG/2 ML VIAL IVP PRN (00:48)
[2019-07-02] MEDS: *HR* Heparin 5,000 UNIT/ML VIAL SQ SCH ×3 (06:08→21:01)
[2019-07-02] MEDS: amLODIPine 5 MG TABLET PO SCH (07:54)
[2019-07-02] MEDS: Clindamycin 600 MG/50 ML 600 MG/50 ML IV.SOLN IVPB SCH ×2 (07:57→16:34)
[2019-07-02] MEDS: Ascorbic Acid 500 MG TABLET PO SCH (07:57)
[2019-07-02] MEDS: Cyanocobalamin (B-12) 1,000 MCG TABLET PO SCH (07:57)
[2019-07-02] MEDS: Acetaminophen 325 MG TABLET PO PRN (08:10)
[2019-07-02] MEDS ORDERED: Ascorbic Acid 500 MG TABLET PO SCH (09:00)
[2019-07-02] MEDS ORDERED: Cyanocobalamin (B-12) 1,000 MCG TABLET PO SCH (09:00)
[2019-07-02] MEDS ORDERED: amLODIPine 5 MG TABLET PO SCH (09:00)
--- NOTE | 2019-07-02 09:57 | Internal Med Progress Note ---
Hospitalist Progress Note - Encounter Date of Encounter: 07/02/19 Time of Encounter: 09:00 - Subjective Interval History: s/p hip surgery in last 24hrs - Exam Vitals: Temp Pulse Resp BP Pulse Ox 97.9 F 63 16 93/50 96 07/02/19 06:36 07/02/19 06:36 07/02/19 06:36 07/02/19 06:36 07/02/19 06:36 Exam: PHYSICAL EXAMINATION: GENERAL APPEARANCE: The patient is alert, oriented and in no acute distress. HEENT: Head is normocephalic. The sinuses are nontender. Pupils are equal and reactive. The nares are patent. Oropharynx clear without lesions. NECK: Supple without lymphadenopathy. HEART: Regular rate and rhythm. LUNGS: No crackles or wheezes are heard. ABDOMEN: Soft, nontender, nondistended with good bowel sounds heard. Inguinal area is normal. EXTREMITIES: right leg is externally rotated and shorter than the left side. NEUROLOGICAL: Gross nonfocal. SKIN: Warm and dry without any rash. - Assessment and Plan (1) Displaced fracture of right femoral neck Current Visit: Yes Status: Acute Assessment and Plan: X-ray of right hip showed a right femoral neck fracture. Pt is s/p right hip surgery Plan for discharge to SNF (2) Hypertension Current Visit: Yes Status: Chronic Assessment and Plan: Not on BP meds at home, BP high currently likely due to acute stress. Will monitor. (3) Fall Current Visit: Yes Status: Acute Assessment and Plan: Mechanical fall. No LOC. No syncope, palpitation, or lightheadedness. (4) DVT prophylaxis Current Visit: Yes Status: Acute Assessment and Plan: Heparin sq - Time Spent with Patient Total time spent is greater than 50% in coordination of care (as documented) at patient's floor/unit and/or counseling patient: Internal Medicine: Result - Labs CBC & Chem 7: 07/02/19 10:08 07/02/19 10:08 - ABG Interpretation ABG results: PT/INR, D-dimer PT 11.6 Seconds (9.4-12.1) 06/30/19 10:52 - Impressions Impressions Hip X-Ray 07/02/19 00:48 IMPRESSION: Expected postsurgical changes following right hip arthroplasty. No immediate complication. D/ / Alex Gimenez / Alex Gimenez Interpreting Provider: Alex Gimenez Consult Discharge Plan - Plan Referrals: Olya Lujan DO [Primary Care Provider] - (2) Hypertension Qualifiers: Hypertension type: essential hypertension Qualified Code(s): I10 - Essential (primary) hypertension (3) Fall Qualifiers: Encounter type: initial encounter Qualified Code(s): W19.XXXA - Unspecified fall, initial encounter
[2019-07-02 10:24] LABS: Basophils % 0.2 %; Hematocrit 32.6 % (35.3-44.9); Hemoglobin 10.6 g/dL (11.5-15.4); Immature Granulocytes % 0.5 % (0-4); Lymphocytes # 0.4 K/mcL (0.6-4.6); Lymphocytes % 3.2 %; Mean Corpuscular HGB Conc 32.5 g/dL (31.6-35.5); Mean Corpuscular Hemoglobin 30.7 pg (28.0-33.3); Mean Corpuscular Volume 94.5 fL (83.0-100.0); Mean Platelet Volume 9.4 fL (9.4-12.4); Monocytes # 0.6 K/mcL (0.0-1.3); Neutrophils # 10.9 K/mcL (1.6-8.9); Platelet Count 215 K/mcL (140-400); Red Blood Count 3.45 M/mcL (3.82-4.97); Red Cell Distribution Width 12.8 % (11.5-14.5); Segmented Neutrophils % 91.1 %; White Blood Count 11.9 K/mcL (4.3-11.1)
[2019-07-02 10:55] LABS: BUN/Creatinine Ratio 29 (6-26); Blood Urea Nitrogen 21 mg/dL (8-23); Calcium 8.6 mg/dL (8.6-10.3); Carbon Dioxide 25 mEq/L (23-29); Chloride 101 mEq/L (98-107); Glucose 201 mg/dL (70-105); Osmolality,Calculated 287 (280-300); Potassium 4.4 mEq/L (3.5-5.1); Sodium 134 mEq/L (136-145); eGFR For African Americans > 60 (> 60); eGFR For Non-African Americans > 60 (> 60)
[2019-07-02] MEDS: traMADol 50 MG TABLET PO PRN (16:33)
[2019-07-02] MEDS: Morphine Sulfate 2 MG/ML SYRINGE IVP PRN (21:01)
--- NOTE | 2019-07-02 22:59 | Event Note ---
Date of Encounter: 07/02/19 Time of Encounter: 21:44 Alerted by patient's nurse DAVID Agustin the patient had been admitted for right femoral neck fracture and is status post shilpa-yesterday. Francis catheter was removed this morning with patient only voiding a small amount. PVR showed approximately 200. Follow-up PVR showed over 300. Order for straight catheter placed. While being straight, patient informed nurses that she has a prolapsed bladder, prolapsed uterus, and a pessary. We will not attempt a straight Patient again. When necessary bladder scans ordered as well as Urology consult. Due to time of evening that consult was placed, a.m. team to follow-up on Urology consult and confirm in the a.m. Nurse instructed to monitor pt. very closely and alert me immediately of any adverse changes.
--- NOTE | 2019-07-02 23:17 | Orthopedics Progress Note ---
Date of Encounter: 07/02/19 Time of Encounter: 23:15 Subjective Principal diagnosis: Displaced right femoral neck fracture Interval history: 07/02/2019. Patient is postoperative day #1 hemiarthroplasty right hip. Patient is having little complaints are referable to her hip. She is having difficulty with some urinary retention and difficulty with catheter placement due to prolapse and with the presence of a pessary. Vital signs are stable. Patient is afebrile. Hip incision is clean and dry. Neurosensory exam is intact. Hemoglobin is stable at 10+ grams. Impression: POD #1 hemiarthroplasty right hip, orthopedic condition stable. Recommendation: Continue with hip precautions and weightbearing as tolerated. information services consultant for discharge planning. Urology consult for additional evaluation and management of her concerns. Objective Vital signs: Vital Signs Temp Pulse Resp BP Pulse Ox 07/02/19 19:15 98.5 F 68 17 153/64 97 07/02/19 11:54 98.1 F 55 16 107/51 98 07/02/19 06:36 97.9 F 63 16 93/50 96 07/02/19 03:44 98.1 F 66 15 100/52 95 07/02/19 02:55 98.2 F 60 18 105/59 94 07/02/19 01:55 98.1 F 63 16 113/61 91 07/02/19 01:25 98.1 F 63 16 121/59 94 07/02/19 00:55 98.2 F 60 16 118/55 95 07/02/19 00:30 98.5 F 65 12 119/55 94 07/02/19 00:20 98.4 F 75 12 112/53 95 07/02/19 00:10 82 10 120/54 93 07/02/19 00:00 71 10 111/52 97 07/01/19 23:50 98.6 F 77 9 116/53 96 Intake and Output 07/02/19 07/02/19 07/02/19 07:59 15:59 23:59 Intake Total 290 / 340 50 / 340 Output Total 175 / 175 Balance -175 / 165 290 / 165 50 / 165 Intake: IV Fluids 50 / 100 50 / 100 Cleocin Premix 600 MG/50 ML 600 50 / 100 50 / 100 mg In 50 ml @ 50 mls/hr IVPB Q8HR [facility] Rx#:[id number] Oral 240 / 240 Output: Catheter 175 / 175 Other: Meal Lunch Percent of Meal Consumed 50% - Labs CBC & BMP: 07/02/19 10:08 07/02/19 10:08 Labs: Abnormal lab results WBC 11.9 K/mcL (4.3-11.1) H 07/02/19 10:08 RBC 3.45 M/mcL (3.82-4.97) L 07/02/19 10:08 Hgb 10.6 g/dL (11.5-15.4) L 07/02/19 10:08 Hct 32.6 % (35.3-44.9) L 07/02/19 10:08 MPV 9.3 fL (9.4-12.4) L 07/01/19 05:26 Neutrophils # 10.9 K/mcL (1.6-8.9) H 07/02/19 10:08 Lymphocytes # 0.4 K/mcL (0.6-4.6) L 07/02/19 10:08 Sodium 134 mEq/L (136-145) L 07/02/19 10:08 Potassium 3.4 mEq/L (3.5-5.1) L 06/30/19 10:52 BUN/Creatinine Ratio 29 (6-26) H 07/02/19 10:08 Glucose 201 mg/dL (70-105) H 07/02/19 10:08 AST 12 Units/L (13-39) L 07/01/19 05:26 Serum Total Protein 5.8 g/dL (6.4-8.9) L 07/01/19 05:26 Globulin 2.2 g/dL (2.4-3.5) L 07/01/19 05:26 Triglycerides 191 mg/dL (< 150) H 07/01/19 05:26 VLDL Cholesterol, Calc 38 mg/dL (< 31) H 07/01/19 05:26 Consult Discharge Plan - Plan Referrals: Olya Lujan DO [Primary Care Provider] -
[2019-07-02] MEDS: ALPRAZolam 0.5 MG TABLET PO SCH (23:24)
[2019-07-03] MEDS: Morphine Sulfate 2 MG/ML SYRINGE IVP PRN ×3 (01:00→19:50)
[2019-07-03] MEDS: Clindamycin 600 MG/50 ML 600 MG/50 ML IV.SOLN IVPB SCH (01:00)
[2019-07-03] MEDS ORDERED: Acetaminophen IV 500 MG/50 ML INFUS..BTL IVPB ONE (02:31)
[2019-07-03 06:01] LABS: Basophils % 0.3 %; Eosinophils % 0.4 %; Hemoglobin 9.7 g/dL (11.5-15.4); Immature Granulocytes % 0.4 % (0-4); Lymphocytes # 1.1 K/mcL (0.6-4.6); Lymphocytes % 10.1 %; Mean Corpuscular HGB Conc 33.4 g/dL (31.6-35.5); Mean Corpuscular Hemoglobin 30.5 pg (28.0-33.3); Mean Corpuscular Volume 91.2 fL (83.0-100.0); Mean Platelet Volume 9.9 fL (9.4-12.4); Monocytes # 0.9 K/mcL (0.0-1.3); Monocytes % 8.7 %; Neutrophils # 8.7 K/mcL (1.6-8.9); Platelet Count 221 K/mcL (140-400); Red Blood Count 3.18 M/mcL (3.82-4.97); Red Cell Distribution Width 12.7 % (11.5-14.5); Segmented Neutrophils % 80.1 %; White Blood Count 10.8 K/mcL (4.3-11.1)
[2019-07-03 06:31] LABS: BUN/Creatinine Ratio 19 (6-26); Blood Urea Nitrogen 14 mg/dL (8-23); Calcium 8.5 mg/dL (8.6-10.3); Carbon Dioxide 26 mEq/L (23-29); Chloride 98 mEq/L (98-107); Glucose 151 mg/dL (70-105); Osmolality,Calculated 277 (280-300); Phosphorous 3.1 mg/dL (2.7-4.5); Potassium 4.1 mEq/L (3.5-5.1); Sodium 132 mEq/L (136-145); eGFR For African Americans > 60 (> 60); eGFR For Non-African Americans > 60 (> 60)
[2019-07-03] MEDS: *HR* Heparin 5,000 UNIT/ML VIAL SQ SCH ×3 (06:37→23:10)
[2019-07-03] MEDS: amLODIPine 5 MG TABLET PO SCH (08:39)
[2019-07-03] MEDS: Ascorbic Acid 500 MG TABLET PO SCH (08:39)
[2019-07-03] MEDS: Cyanocobalamin (B-12) 1,000 MCG TABLET PO SCH (08:39)
[2019-07-03] MEDS: traMADol 50 MG TABLET PO PRN (08:39)
--- NOTE | 2019-07-03 10:35 | Urology - Consult Note ---
<Concepción Alberts N - Last Filed: 07/03/19 10:32> Date of Encounter: 07/03/19 Time of Encounter: 09:30 - Assessment and Plan (1) Postoperative urinary retention Current Visit: Yes Status: Acute Assessment and plan: Patient is an 79-year-old female who presents with a history of postoperative urinary retention. Patient appears to be voiding well without difficulty. Renal function remains reassuring with a GFR greater than 60. At this time, I do not anticipate any urologic intervention, and I do not feel the patient requires catheterization. It may be reasonable to follow-up within 1-2 weeks of discharge for a bladder scan in our office to evaluate for post void residual. If any further concerns, urology is always available as needed. Urology CN:GILMAR Consult date: 07/03/19 Reason for consult Urology: Other (Urinary retention) Requesting physician: Gilberto Pak History of present illness: Patient is an 79-year-old female who presents with a history of postoperative urinary retention. Bladder scan revealed over 300 mL. Patient is 2 days status post right hemiarthroplasty for a displaced right femoral neck fracture. 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 Patient reports she has used a pessary device for over 15 years. Patient follows with pessary management with her [employer], Dr. Silver. Patient states she is experienced postoperative urinary retention in the past. She does not currently following with a urologist. She denies any dysuria, flank pain or gross hematuria. On my evaluation, she is sitting upright in chair in no apparent distress. She states she is now voiding well without difficulty. She reports a clear urine output of 500mL this morning. Patient denies any known family history of malignancy. Past Med Surg Social Fam HX - Past Medical History Medical history: hyperlipidemia, hypertension, other Additional medical history: DIVERTICULOSIS Psychiatric history: anxiety - Past Surgical History Surgical History: breast surgery (Lumpectomy), hysterectomy (Partial), other (Oophorectomy) Additional surgical history: benign breast tumor, OVARY REMOVED - Social History Smoking Status: Never smoker Smokeless Tobacco Status: No Alcohol use: none Drug use: none - Family History Mother Hx Family Respiratory Disorders: Yes Hx Family Cancer: Yes Father Hx Family Cardiac Disorders: Yes Medications and Allergies ALPRAZolam [Xanax 0.5 MG Tablet] 0.5 mg PO HS 07/22/16 [History] Ascorbic Acid [C-500] 500 mg PO DAILY #30 tablet 12/12/18 [Rx] Cyanocobalamin (B-12) [Vitamin B12] 1,000 mcg PO DAILY #30 tablet 12/12/18 [Rx] Amlodipine Besylate 2.5 mg PO DAILY 07/01/19 [History] Aspirin [Adult Aspirin] 81 mg PO DAILY 07/01/19 [History] Lactase [Lactaid] 3,000 unit PO PRN PRN 07/01/19 [History] Lisinopril-HCTZ 10-12.5 [Prinzide 10-12.5] 1 tab PO DAILY 07/01/19 [History] Allergy/AdvReac Type Severity Reaction Status Date / Time alendronate sodium Allergy Hives Verified 05/10/17 11:39 [From Fosamax] colesevelam Allergy Hives Verified 05/10/17 11:39 niacin Allergy Hives Verified 05/10/17 11:39 Penicillins Allergy Swelling Verified 05/10/17 11:39 of Lip/Tongue/Throat pravastatin [From Pravachol] Allergy Cough Verified 05/10/17 11:39 Nnxwvfa-Fow-Ldj Reductase Allergy Hives Verified 05/10/17 11:39 Inhibitor [Statins] Sulfa (Sulfonamide Allergy Hives Verified 05/10/17 11:39 Antibiotics) Review of Systems - Constitutional no chills, no fatigue, no fever(s) - EENT Nose, mouth and throat: no dizziness, no headache(s) - Cardiovascular no chest pain, no diaphoresis, no dyspnea - Respiratory no cough, no dyspnea - Gastrointestinal no abdominal pain, no nausea, no vomiting - Genitourinary Genitourinary: change in urinary stream, difficulty urinating, no dysuria, no flank pain, no hematuria, no urinary frequency, no urinary hesitancy, no urinary incontinence, no urinary urgency - Musculoskeletal no back pain, no muscle weakness - Integumentary no erythema, no rash - Neurological no confusion, no syncope - Psychiatric no anxiety, no confusion Exam Initial Vital Signs Temp Pulse Resp BP Pulse Ox 97.8 F 53 24 173/70 97 06/30/19 10:33 06/30/19 10:33 06/30/19 10:33 06/30/19 10:33 06/30/19 10:33 - General physical appearance Present: no distress, no pain - Eyes Present: PERRL, normal ocular movement - ENT Present: normal nares, no hearing loss, no congestion - Neck Present: no masses, trachea midline, no lymphadenopathy - Respiratory Present: normal respiratory effort - Cardiovascular Cardiovascular exam IM: RRR - Abdomen Abdomen: Present: soft, non tender. Absent: distended - Genitourinary Present: other (No CVAT) - Integumentary Present: no rash, no abnormal pigmentation - Neurologic Present: normal coordination - Musculoskeletal Present: other (Normal posture) Urology Results - Labs 07/03/19 05:16 07/03/19 05:16 Abnormal lab results WBC 11.9 K/mcL (4.3-11.1) H 07/02/19 10:08 RBC 3.18 M/mcL (3.82-4.97) L 07/03/19 05:16 Hgb 9.7 g/dL (11.5-15.4) L 07/03/19 05:16 Hct 29.0 % (35.3-44.9) L 07/03/19 05:16 MPV 9.3 fL (9.4-12.4) L 07/01/19 05:26 Neutrophils # 10.9 K/mcL (1.6-8.9) H 07/02/19 10:08 Lymphocytes # 0.4 K/mcL (0.6-4.6) L 07/02/19 10:08 Sodium 132 mEq/L (136-145) L 07/03/19 05:16 Potassium 3.4 mEq/L (3.5-5.1) L 06/30/19 10:52 BUN/Creatinine Ratio 29 (6-26) H 07/02/19 10:08 Glucose 151 mg/dL (70-105) H 07/03/19 05:16 Calculated Osmolality 277 (280-300) L 07/03/19 05:16 Calcium 8.5 mg/dL (8.6-10.3) L 07/03/19 05:16 AST 12 Units/L (13-39) L 07/01/19 05:26 Serum Total Protein 5.8 g/dL (6.4-8.9) L 07/01/19 05:26 Globulin 2.2 g/dL (2.4-3.5) L 07/01/19 05:26 Triglycerides 191 mg/dL (< 150) H 07/01/19 05:26 VLDL Cholesterol, Calc 38 mg/dL (< 31) H 07/01/19 05:26 Diabetes panel 07/02/19 07/03/19 Range/Units 10:08 05:16 Sodium 134 L 132 L (136-145) mEq/L Potassium 4.4 4.1 (3.5-5.1) mEq/L Chloride 101 98 (98-107) mEq/L Carbon Dioxide 25 26 (23-29) mEq/L BUN 21 14 (8-23) mg/dL Creatinine 0.72 0.72 (0.60-1.20) mg/dL Glucose 201 H 151 H (70-105) mg/dL Calcium 8.6 8.5 L (8.6-10.3) mg/dL Calcium panel 07/02/19 07/03/19 Range/Units 10:08 05:16 Calcium 8.6 8.5 L (8.6-10.3) mg/dL Phosphorus 3.1 (2.7-4.5) mg/dL Pituitary panel 07/02/19 07/03/19 Range/Units 10:08 05:16 Sodium 134 L 132 L (136-145) mEq/L Potassium 4.4 4.1 (3.5-5.1) mEq/L Chloride 101 98 (98-107) mEq/L Carbon Dioxide 25 26 (23-29) mEq/L BUN 21 14 (8-23) mg/dL Creatinine 0.72 0.72 (0.60-1.20) mg/dL Glucose 201 H 151 H (70-105) mg/dL Calcium 8.6 8.5 L (8.6-10.3) mg/dL Adrenal panel 07/02/19 07/03/19 Range/Units 10:08 05:16 Sodium 134 L 132 L (136-145) mEq/L Potassium 4.4 4.1 (3.5-5.1) mEq/L Chloride 101 98 (98-107) mEq/L Carbon Dioxide 25 26 (23-29) mEq/L BUN 21 14 (8-23) mg/dL Creatinine 0.72 0.72 (0.60-1.20) mg/dL Glucose 201 H 151 H (70-105) mg/dL Calcium 8.6 8.5 L (8.6-10.3) mg/dL All other labs normal. Consult Discharge Plan - Plan Referrals: Olya Lujan DO [Primary Care Provider] - <Sunil Decker - Last Filed: 07/03/19 18:23> Date of Encounter: 07/03/19 Urology CN:HPI History of present illness: Patient was seen and examined independently. I agree with the plan as written by Liv Alberts. Patient was able to void earlier today. Patient to follow-up urology as needed. Exam Initial Vital Signs Temp Pulse Resp BP Pulse Ox 97.8 F 53 24 173/70 97 06/30/19 10:33 06/30/19 10:33 06/30/19 10:33 06/30/19 10:33 06/30/19 10:33 Urology Results - Labs 07/03/19 05:16 07/03/19 05:16 Abnormal lab results WBC 11.9 K/mcL (4.3-11.1) H 07/02/19 10:08 RBC 3.18 M/mcL (3.82-4.97) L 07/03/19 05:16 Hgb 9.7 g/dL (11.5-15.4) L 07/03/19 05:16 Hct 29.0 % (35.3-44.9) L 07/03/19 05:16 MPV 9.3 fL (9.4-12.4) L 07/01/19 05:26 Neutrophils # 10.9 K/mcL (1.6-8.9) H 07/02/19 10:08 Lymphocytes # 0.4 K/mcL (0.6-4.6) L 07/02/19 10:08 Sodium 132 mEq/L (136-145) L 07/03/19 05:16 Potassium 3.4 mEq/L (3.5-5.1) L 06/30/19 10:52 BUN/Creatinine Ratio 29 (6-26) H 07/02/19 10:08 Glucose 151 mg/dL (70-105) H 07/03/19 05:16 Calculated Osmolality 277 (280-300) L 07/03/19 05:16 Calcium 8.5 mg/dL (8.6-10.3) L 07/03/19 05:16 AST 12 Units/L (13-39) L 07/01/19 05:26 Serum Total Protein 5.8 g/dL (6.4-8.9) L 07/01/19 05:26 Globulin 2.2 g/dL (2.4-3.5) L 07/01/19 05:26 Triglycerides 191 mg/dL (< 150) H 07/01/19 05:26 VLDL Cholesterol, Calc 38 mg/dL (< 31) H 07/01/19 05:26 Diabetes panel 07/03/19 Range/Units 05:16 Sodium 132 L (136-145) mEq/L Potassium 4.1 (3.5-5.1) mEq/L Chloride 98 (98-107) mEq/L Carbon Dioxide 26 (23-29) mEq/L BUN 14 (8-23) mg/dL Creatinine 0.72 (0.60-1.20) mg/dL Glucose 151 H (70-105) mg/dL Calcium 8.5 L (8.6-10.3) mg/dL Calcium panel 07/03/19 Range/Units 05:16 Calcium 8.5 L (8.6-10.3) mg/dL Phosphorus 3.1 (2.7-4.5) mg/dL Pituitary panel 07/03/19 Range/Units 05:16 Sodium 132 L (136-145) mEq/L Potassium 4.1 (3.5-5.1) mEq/L Chloride 98 (98-107) mEq/L Carbon Dioxide 26 (23-29) mEq/L BUN 14 (8-23) mg/dL Creatinine 0.72 (0.60-1.20) mg/dL Glucose 151 H (70-105) mg/dL Calcium 8.5 L (8.6-10.3) mg/dL Adrenal panel 07/03/19 Range/Units 05:16 Sodium 132 L (136-145) mEq/L Potassium 4.1 (3.5-5.1) mEq/L Chloride 98 (98-107) mEq/L Carbon Dioxide 26 (23-29) mEq/L BUN 14 (8-23) mg/dL Creatinine 0.72 (0.60-1.20) mg/dL Glucose 151 H (70-105) mg/dL Calcium 8.5 L (8.6-10.3) mg/dL All other labs normal.
--- NOTE | 2019-07-03 15:26 | Internal Med Progress Note ---
Hospitalist Progress Note - Encounter Date of Encounter: 07/03/19 Time of Encounter: 10:00 - Subjective Interval History: No acute events overnight - Exam Vitals: Temp Pulse Resp BP Pulse Ox 98.9 F 55 14 103/60 93 07/03/19 07:07 07/03/19 07:07 07/03/19 07:07 07/03/19 07:07 07/03/19 07:07 Exam: PHYSICAL EXAMINATION: GENERAL APPEARANCE: The patient is alert, oriented and in no acute distress. HEENT: Head is normocephalic. The sinuses are nontender. Pupils are equal and reactive. The nares are patent. Oropharynx clear without lesions. NECK: Supple without lymphadenopathy. HEART: Regular rate and rhythm. LUNGS: No crackles or wheezes are heard. ABDOMEN: Soft, nontender, nondistended with good bowel sounds heard. Inguinal area is normal. EXTREMITIES: right leg is externally rotated and shorter than the left side. NEUROLOGICAL: Gross nonfocal. SKIN: Warm and dry without any rash. - Assessment and Plan (1) Displaced fracture of right femoral neck Current Visit: Yes Status: Acute Assessment and Plan: X-ray of right hip showed a right femoral neck fracture. Pt is s/p right hip surgery Plan for discharge to SNF (2) Hypertension Current Visit: Yes Status: Chronic Assessment and Plan: Not on BP meds at home, BP high currently likely due to acute stress. Will monitor. (3) Fall Current Visit: Yes Status: Acute Assessment and Plan: Mechanical fall. No LOC. No syncope, palpitation, or lightheadedness. (4) Postoperative urinary retention Current Visit: Yes Status: Acute Assessment and Plan: Seen by urology. Continuing voiding trials. No plan for catheter placement (5) DVT prophylaxis Current Visit: Yes Status: Acute Assessment and Plan: Heparin sq - Time Spent with Patient Total time spent is greater than 50% in coordination of care (as documented) at patient's floor/unit and/or counseling patient: Internal Medicine: Result - Labs CBC & Chem 7: 07/03/19 05:16 07/03/19 05:16 Labs: Short CBC 07/03/19 Range/Units 05:16 WBC 10.8 (4.3-11.1) K/mcL Hgb 9.7 L (11.5-15.4) g/dL Hct 29.0 L (35.3-44.9) % Plt Count 221 (140-400) K/mcL Neutrophils # 8.7 (1.6-8.9) K/mcL BMP 07/03/19 05:16 Sodium 132 L Potassium 4.1 Chloride 98 Carbon Dioxide 26 BUN 14 Creatinine 0.72 Glucose 151 H Calcium 8.5 L - ABG Interpretation ABG results: PT/INR, D-dimer PT 11.6 Seconds (9.4-12.1) 06/30/19 10:52 Consult Discharge Plan - Plan Referrals: Olya Lujan, [Primary Care Provider] - (2) Hypertension Qualifiers: Hypertension type: essential hypertension Qualified Code(s): I10 - Essential (primary) hypertension (3) Fall Qualifiers: Encounter type: initial encounter Qualified Code(s): W19.XXXA - Unspecified fall, initial encounter
[2019-07-03] MEDS: Acetaminophen 325 MG TABLET PO PRN (23:09)
[2019-07-03] MEDS: ALPRAZolam 0.5 MG TABLET PO SCH (23:10)
[2019-07-04 04:08] LABS: Basophils % 0.3 %; Eosinophils # 0.3 K/mcL (0.0-0.6); Eosinophils % 3.4 %; Hematocrit 30.4 % (35.3-44.9); Hemoglobin 9.8 g/dL (11.5-15.4); Immature Granulocytes % 0.2 % (0-4); Lymphocytes # 1.6 K/mcL (0.6-4.6); Lymphocytes % 17.9 %; Mean Corpuscular HGB Conc 32.2 g/dL (31.6-35.5); Mean Corpuscular Hemoglobin 30.2 pg (28.0-33.3); Mean Corpuscular Volume 93.5 fL (83.0-100.0); Mean Platelet Volume 9.8 fL (9.4-12.4); Monocytes # 0.9 K/mcL (0.0-1.3); Monocytes % 10.1 %; Neutrophils # 5.9 K/mcL (1.6-8.9); Platelet Count 246 K/mcL (140-400); Red Blood Count 3.25 M/mcL (3.82-4.97); Segmented Neutrophils % 68.1 %; White Blood Count 8.7 K/mcL (4.3-11.1)
[2019-07-04 04:18] LABS: BUN/Creatinine Ratio 21 (6-26); Blood Urea Nitrogen 14 mg/dL (8-23); Calcium 8.6 mg/dL (8.6-10.3); Carbon Dioxide 26 mEq/L (23-29); Chloride 101 mEq/L (98-107); Glucose 126 mg/dL (70-105); Osmolality,Calculated 278 (280-300); Phosphorous 3.4 mg/dL (2.7-4.5); Potassium 3.9 mEq/L (3.5-5.1); Sodium 133 mEq/L (136-145); eGFR For African Americans > 60 (> 60); eGFR For Non-African Americans > 60 (> 60)
[2019-07-04] MEDS: traMADol 50 MG TABLET PO PRN ×2 (05:20→11:52)
[2019-07-04] MEDS: *HR* Heparin 5,000 UNIT/ML VIAL SQ SCH (05:27)
[2019-07-04 07:26] VITALS: BP 128/66
[2019-07-04] MEDS: amLODIPine 5 MG TABLET PO SCH (08:37)
[2019-07-04] MEDS: Cyanocobalamin (B-12) 1,000 MCG TABLET PO SCH (08:37)
[2019-07-04] MEDS: Ascorbic Acid 500 MG TABLET PO SCH (08:38)
--- NOTE | 2019-07-04 10:10 | Discharge Summary ---
Date of Encounter: 07/04/19 Time of Encounter: 10:00 - Discharge Diagnosis (1) Displaced fracture of right femoral neck Priority: Primary Status: Acute Assessment and Plan: 79F with PMHx of HTN and HLD presents to the ED after a mechanical fall without loss of consciousness. Patient was running away from a bee that was inside of her house when she twisted and fell, striking the right side of her body and the right side of her head. She said she saw stars but did not lose consciousness. She was only on the ground for a few minutes as her son was home as well and called EMS. She is afraid she may have broken her hip as her right hip is exquisitely tender. She denies head and neck pain, chest pain, abdominal pain at this time. Her shoulder feels a little bit sore but is not tender to palpation. X-ray of right hip showed subcapital right femoral neck fracture with superior displacement. Orthopedics was consulted. Patient was admitted for further evaluation and management. She was assessed with a right hip femoral neck fracture and seen by orthopedic surgery. She had a right hip hemiarthroplasty done which she tolerated with no acute complications. She was discharged to rehab on xarelto for DVT prophylaxis. She has a history of uterine prolapse and had post op urinary retention. She will follow up outpatient with urology. She was seen b urology who recommended voiding trials and no catheter placement. 35 minutes was spent discharging this patient (2) Hypertension Priority: Primary Status: Chronic Qualifiers: Hypertension type: essential hypertension Qualified Code(s): I10 - Essential (primary) hypertension (3) Fall Priority: Primary Status: Acute Qualifiers: Encounter type: initial encounter Qualified Code(s): W19.XXXA - Unspecified fall, initial encounter (4) Postoperative urinary retention Priority: Primary Status: Acute (5) DVT prophylaxis Priority: Primary Status: Acute Hospital course: Ms. Pemberton is a 79 year old female - Time Spent with Patient Total time spent providing and/or coordinating discharge services: - Discharge Medications Prescriptions: New OxyCODONE/APAP 5/325 [Percocet 5/325 MG] 1 each PO Q6HR PRN 3 Days #10 tablet PRN Reason: Pain Rivaroxaban [Xarelto] 10 mg PO 1700 #30 tablet Continued Lisinopril-HCTZ 10-12.5 [Prinzide 10-12.5] 1 tab PO DAILY Aspirin [Adult Aspirin] 81 mg PO DAILY Amlodipine Besylate 2.5 mg PO DAILY Lactase [Lactaid] 3,000 unit PO PRN PRN PRN Reason: Lactose Intolerance ALPRAZolam [Xanax 0.5 MG Tablet] 0.5 mg PO HS Ascorbic Acid [C-500] 500 mg PO DAILY #30 tablet Cyanocobalamin (B-12) [Vitamin B12] 1,000 mcg PO DAILY #30 tablet Home Medications: ALPRAZolam [Xanax 0.5 MG Tablet] 0.5 mg PO HS 07/22/16 [History] Ascorbic Acid [C-500] 500 mg PO DAILY #30 tablet 12/12/18 [Rx] Cyanocobalamin (B-12) [Vitamin B12] 1,000 mcg PO DAILY #30 tablet 12/12/18 [Rx] Amlodipine Besylate 2.5 mg PO DAILY 07/01/19 [History] Aspirin [Adult Aspirin] 81 mg PO DAILY 07/01/19 [History] Lactase [Lactaid] 3,000 unit PO PRN PRN 07/01/19 [History] Lisinopril-HCTZ 10-12.5 [Prinzide 10-12.5] 1 tab PO DAILY 07/01/19 [History] OxyCODONE/APAP 5/325 [Percocet 5/325 MG] 1 each PO Q6HR PRN 3 Days #10 tablet 07/04/19 [Rx] Rivaroxaban [Xarelto] 10 mg PO 1700 #30 tablet 07/04/19 [Rx] Allergies/Adverse Reactions: Allergy/AdvReac Type Severity Reaction Status Date / Time alendronate sodium Allergy Hives Verified 05/10/17 11:39 [From Fosamax] colesevelam Allergy Hives Verified 05/10/17 11:39 niacin Allergy Hives Verified 05/10/17 11:39 Penicillins Allergy Swelling Verified 05/10/17 11:39 of Lip/Tongue/Throat pravastatin [From Pravachol] Allergy Cough Verified 05/10/17 11:39 Qjtbaxv-Nqt-Pci Reductase Allergy Hives Verified 05/10/17 11:39 Inhibitor [Statins] Sulfa (Sulfonamide Allergy Hives Verified 05/10/17 11:39 Antibiotics) Date of admission: 07/01/19 15:08 Primary care physician: Olya Lujan DO Consults: 06/30/19 11:40 Consult to Orthopedic Surgery [CONS] Stat Consulting Provider: Noel Fay Reason for Consult: hip fracture Time Notified: 11:41 Call Completed: Yes 07/02/19 00:48 Consult to Occupational Therapy [CONS] Routine Comment: Evaluate, develop and implement POC Reason for Consult: ADL Does patient have active BEDREST order?: No Is patient medically & hemodynamically stable?: Yes Consult to Physical Therapy [CONS] Routine Comment: Evaluate, develop and implement POC Reason for Consult: Hip Fx Does patient have active BEDREST order?: No Is patient medically & hemodynamically stable?: Yes Consult to [employer] [CONS] Routine Reason for SW Consult: D/C 07/02/19 22:50 Consult to Urology [CONS] Routine Consulting Provider: Urologgavino Martin Reason for Consult: Patient is status post shilpa-for right femoral neck fracture yesterday. Francis catheter removed this morning with patient only voiding small amount. PVR showed over 300. This catheter ordered but patient reported she has a prolapsed bladder, prolapsed uterus, and a pessary. When necessary bladder scans ordered and no further attempts for straight caths to be done. Call Completed: No - Constitutional Vitals: Temp Pulse Resp BP Pulse Ox 98.6 F 59 17 128/66 93 07/04/19 07:25 07/04/19 07:25 07/04/19 07:25 07/04/19 07:25 07/04/19 07:25 General appearance: Present: A&O X 3 Exam: PHYSICAL EXAMINATION: GENERAL APPEARANCE: The patient is alert, oriented and in no acute distress. HEENT: Head is normocephalic. The sinuses are nontender. Pupils are equal and reactive. The nares are patent. Oropharynx clear without lesions. NECK: Supple without lymphadenopathy. HEART: Regular rate and rhythm. LUNGS: No crackles or wheezes are heard. ABDOMEN: Soft, nontender, nondistended with good bowel sounds heard. Inguinal area is normal. EXTREMITIES: right leg is externally rotated and shorter than the left side. NEUROLOGICAL: Gross nonfocal. SKIN: Warm and dry without any rash. - Patient Status Disposition: Transfer Hospital Swing Bed Condition: Good - Discharge Instructions Instructions: Fall Prevention (DC) Follow Up With: Sunil Decker MD [Partnered Physician] - 07/25/19 2:30 pm (follow up for Urinary Retention Appointment is at the [place] office in [place]. ) Noel Fay DO [Non-Partnered Physician] - 07/21/19 2:25 pm Olya Lujan DO [Primary Care Provider] - 07/09/19 2:45 pm
--- NOTE | 2019-07-04 10:10 | Physician Discharge Referral ---
- Diagnosis (1) Displaced fracture of right femoral neck Priority: Primary Status: Acute (2) Hypertension Priority: Primary Status: Chronic (3) Fall Priority: Primary Status: Acute (4) Postoperative urinary retention Priority: Primary Status: Acute (5) DVT prophylaxis Priority: Primary Status: Acute - Transfer Medications Home Medications: ALPRAZolam [Xanax 0.5 MG Tablet] 0.5 mg PO HS 07/22/16 [History] Ascorbic Acid [C-500] 500 mg PO DAILY #30 tablet 12/12/18 [Rx] Cyanocobalamin (B-12) [Vitamin B12] 1,000 mcg PO DAILY #30 tablet 12/12/18 [Rx] Amlodipine Besylate 2.5 mg PO DAILY 07/01/19 [History] Aspirin [Adult Aspirin] 81 mg PO DAILY 07/01/19 [History] Lactase [Lactaid] 3,000 unit PO PRN PRN 07/01/19 [History] Lisinopril-HCTZ 10-12.5 [Prinzide 10-12.5] 1 tab PO DAILY 07/01/19 [History] Allergies/Adverse Reactions: Allergy/AdvReac Type Severity Reaction Status Date / Time alendronate sodium Allergy Hives Verified 05/10/17 11:39 [From Fosamax] colesevelam Allergy Hives Verified 05/10/17 11:39 niacin Allergy Hives Verified 05/10/17 11:39 Penicillins Allergy Swelling Verified 05/10/17 11:39 of Lip/Tongue/Throat pravastatin [From Pravachol] Allergy Cough Verified 05/10/17 11:39 Vjzuqug-Qrv-Ajz Reductase Allergy Hives Verified 05/10/17 11:39 Inhibitor [Statins] Sulfa (Sulfonamide Allergy Hives Verified 05/10/17 11:39 Antibiotics) - Respiratory Orders Smoking Cessation: Smoking cessation has been advised. For more information, call the [place] Tobacco Quit Line at 8-759-KZQS-NOW. - Mobility Orders Ambulate - Rehabiliation Orders Rehab Orders: Evaluation for Physical Therapy, Evaluation for Occupational Therapy CERTIFICATION: I certify that the transfer of the above named patient to an Extended Care Facility is necessary for the continuing treatment of the diagnosis listed. The above information is true and accurate reflection of patient's current condition. Confidential - Redisclosure prohibited without a patient's written consent.
== END 2019-07-04 12:26 | disposition other institution (70) | DRG 470 ==
LOC: EMEROOARM 10:32 → 3NENU 10:32 → SUATTDRO 12:12 → 3NENU 13:00
PROVIDERS: ADMIT Internal Medicine Nephrology; ATTEND Internal Medicine